=== PATIENT | female | born 1950 | race Caucasian/White ===

== ENCOUNTER 2016-11-30 12:32 | Emergency (ER) | payer BC ==
[~2016-11-30] VITALS: Ht 160 cm; Wt 79.5 kg
[~2016-11-30 12:32] MED LIST: ASPEC81 PO; IBUP600T44 PO; METO50TA16 PO; OXYC-57 PO; TAMO20TA5 PO
[2016-11-30 12:39] VITALS: TEMP 36.8; Ht 160 cm; Wt 79.5 kg
[2016-11-30] MEDS ORDERED: ASPI-461 PO (13:02)
[2016-11-30] MEDS ORDERED: SODIUM CHLORIDE 0.9% 1000ML 1,000 ML IV STA (13:05)
[2016-11-30] MEDS ORDERED: KETOROLAC TROMETHAMINE 30 MG/ML VIAL IV STA (13:05)
--- NOTE | 2016-11-30 13:06 | EMERGENCY ROOM VISIT NOTE ---
History Report prepared by Rakesh: Rajinder Qureshi Under the Supervision of: Dr. Honorio Wallace M.D. First contact with patient: 12:56 Chief Complaint: HEADACHE Stated Complaint: RT SIDE NUMBNESS IN FACE, DOESN'T FEEL RIGHT, SARABIA History of Present Illness The patient is a 66 year old female who presents to the Emergency Room with complaints of persistent right-sided facial numbness that started 4 days ago. Her primary care doctor recommended that the patient come here to be evaluated. She says that her numbness has been getting worse and she has had a headache, but she currently does not have the headache. The patient notes that she had a bit of ringing in her left ear last night, but that has gone away. She denies nausea, vomiting, weakness, or difficulty ambulating. The patient took a Valtrex last night to see if it would help. She does get cold sores regularly. The patient just got off Azithromycin last week. She is not on any blood thinners. The patient has not had any recent falls. She does note that for the last 2 years, she has had episodes of vertigo, and takes Meclizine for them. Source of History: patient Onset: 4 days ago Position: other (face - right side) Quality: numbness Timing: other (persistent) Associated Symptoms: + headache (denied currently), No nausea, No vomiting, No weakness Note: Associated symptoms: Episode of left ear ringing last night. Denies difficulty ambulating. Review of Systems See HPI for pertinent positives & negatives. A total of 10 systems reviewed and were otherwise negative. Past Medical & Surgical Medical Problems: (1) Dysplasia of cervix (2) Vaginal hysterectomy (3) Vertigo Family History Diabetes mellitus FH: lung disease FHx: cancer FHx: gallbladder disease Hypertension Kidney disease Social History Smoking Status: Never Smoker Smokeless Tobacco Use: No Alcohol Use: none Marital Status: Housing Status: lives with family Occupation Status: employed Current/Historical Medications Scheduled Aspirin (Aspirin), 81 MG PO DAILY Metoprolol Tartrate (Lopressor) (Lopressor), 50 MG PO DAILY Prednisone (Prednisone), 1 TAB PO DAILY Valacyclovir Hcl (Valtrex), 1,000 MG PO TID Allergies Coded Allergies: Quinolones (Verified Allergy, Unknown, LEVAQUIN, 11/30/16) Amoxicillin (Unverified Adverse Reaction, Intermediate, SEVERE N/V, ) Clavulanic Acid (Unverified Adverse Reaction, Intermediate, SEVERE N/V, ) Physical Exam Vital Signs Date Time Temp Pulse Resp B/P Pulse Ox O2 Delivery O2 Flow Rate FiO2 11/30/16 15:12 66 155/76 11/30/16 14:30 87 17 131/87 97 Room Air 11/30/16 12:39 36.8 70 18 148/100 94 Room Air Physical Exam GENERAL: Patient is well appearing and in no acute distress. HEENT: No acute trauma, normocephalic atraumatic, mucous membranes moist, no nasal congestion, no scleral icterus. Decreased sensation over right nose and right maxillary sinus. NECK: No stridor, no adenopathy, no meningismus, trachea is midline. LUNGS: No dyspnea. Clear to auscultation and equal bilaterally. No wheeze, no rhonchi. HEART: Regular rate and rhythm. No murmurs, rubs, gallops appreciated. ABDOMEN: Soft, nontender, bowel sounds positive, no masses appreciated, no peritonitis. BACK: No midline tenderness, no CVA tenderness EXTREMITIES: Normal motion all extremities, no cyanosis, no edema. NEUROLOGIC: Alert and oriented, no acute motor or sensory deficits, no focal weakness, cranial nerves grossly intact. SKIN: No rash, no jaundice, no diaphoresis. Medical Decision & Procedures ER Provider Diagnostic Interpretation: MRI results are stated below per my interpretation and the radiologist's interpretation. Brain MRI WITHOUT CONTRAST HISTORY: Mental status change stroke rule out. Right facial paresthesias TECHNIQUE: Multiplanar multisequence MRI of the brain was performed without the use of contrast. COMPARISON STUDY: None. FINDINGS: There are no areas of restricted diffusion to suggest acute infarction. The midline structures are intact. The paranasal sinuses are clear. The mastoid air cells are clear. The ventricles and sulci are within normal limits for age. There is no mass, hematoma, midline shift. The major vascular flow-voids at the skull base are well maintained. Moderate chronic small vessel change of aging. Sella and parasellar regions are unremarkable. IMPRESSION: No acute intracranial abnormality. Moderate chronic small vessel change of aging. No evidence for abnormal postcontrast enhancement. Electronically signed by: Oscar Rayo M.D. 11/30/2016 2:34 PM Dictated Date/Time: 11/30/2016 2:29 PM Medications Administered Medications (Trade) Dose Ordered Sig/Sharad Route Start Time Stop Time Status Last Admin Dose Admin Sodium Chloride (Nss 1000ml) 1,000 ml @ 999 mls/hr Q1H1M STAT IV 11/30/16 13:05 11/30/16 14:05 DC 11/30/16 13:09 999 MLS/HR Prednisone (PredniSONE TAB) 60 mg NOW STAT PO 11/30/16 14:54 11/30/16 14:56 DC 11/30/16 15:05 60 MG Valacyclovir HCl (Valtrex Tab) 1,000 mg NOW ONCE PO 11/30/16 15:00 11/30/16 15:01 DC 11/30/16 15:05 1,000 MG ED Course 1258: The patient was evaluated in room B5. A complete history and physical exam was performed. 1304: I reevaluated the patient and she currently has no headache, and she denies Toradol. 1305: Ordered Toradol Inj 30 mg IV, NSS 1000 ml @ 999 mls/hr IV. 1410: I reevaluated the patient and she is at MRI. 1454: Ordered Prednisone Tab 60 mg PO. 1457: Reevaluated the patient and she is resting comfortably. Discussed results and discharge instructions: She verbalized understanding and agreement. The patient is ready for discharge. 1500: Ordered Valtrex Tab 1000 mg PO. Medical Decision 66 yr old pleasant female arrives for evaluation of paresthesia and decreased sensation over right nares and maxillary sinus. Exam benign without any neuro deficits. With history there is concern that this is stroke related thus went ahead with MRI. As no trauma nor severe headache nor other acute issues felt that doing CT initially would be counterproductive. MRI fortunately normal. Patient stable and feeling well. Will add on steroids for likely neuritis. As she has history of Herpetic lesions on lips will add on Valtrex on off chance this is early shingles or other viral etiology. Impression Primary Impression: Facial paresthesia Scribe Attestation The scribe's documentation has been prepared under my direction and personally reviewed by me in its entirety. I confirm that the note above accurately reflects all work, treatment, procedures, and medical decision making performed by me. Departure Information Dispostion Home / Self-Care Prescriptions Valacyclovir Hcl (VALTREX) 1 Gm Tab 1000 MG PO TID, #21 TAB Prov: Honorio Wallace M.D. 11/30/16 Prednisone (Prednisone) 50 Mg Tab 1 TAB PO DAILY for 5 Days, #5 TAB Prov: Honorio Wallace M.D. 11/30/16 Referrals Terence Zee M.D. (PCP) Patient Instructions My [facility] Additional Instructions Return immediately if weakness, severe headache, fevers, or other concerns.
[2016-11-30 14:30] VITALS: O2SAT 97
--- NOTE | 2016-11-30 14:36 | DIAGNOSTIC IMAGING REPORT ---
Brain MRI WITHOUT CONTRAST HISTORY: Mental status change stroke rule out. Right facial paresthesias TECHNIQUE: Multiplanar multisequence MRI of the brain was performed without the use of contrast. COMPARISON STUDY: None. FINDINGS: There are no areas of restricted diffusion to suggest acute infarction. The midline structures are intact. The paranasal sinuses are clear. The mastoid air cells are clear. The ventricles and sulci are within normal limits for age. There is no mass, hematoma, midline shift. The major vascular flow-voids at the skull base are well maintained. Moderate chronic small vessel change of aging. Sella and parasellar regions are unremarkable. IMPRESSION: No acute intracranial abnormality. Moderate chronic small vessel change of aging. No evidence for abnormal postcontrast enhancement. Electronically signed by: Oscar Rayo M.D. 11/30/2016 2:34 PM Dictated Date/Time: 11/30/2016 2:29 PM
[2016-11-30] MEDS ORDERED: VALA1TAB2 PO (15:00)
[2016-11-30] MEDS ORDERED: PRED50TA PO (15:00)
[2016-11-30 15:12] VITALS: BP 155/76; PULSE 66
== END 2016-11-30 15:13 | disposition home or self-care (01) ==
LOC: C.EDB 12:34
DX: R20.2 Paresthesia of skin (principal); Z90.710 Acquired absence of both cervix and uterus; Z83.3 Family history of diabetes mellitus; Z80.9 Family history of malignant neoplasm, unspecified; Z82.49 Family history of ischemic heart disease and other diseases of the circulatory system; Z79.82 Long term (current) use of aspirin; Z79.899 Other long term (current) drug therapy

== ENCOUNTER → 2016-12-13 | Outpatient (CLI) | payer BC ==
[~2016-12-13] MED LIST changes: -ASPEC81 PO; +ASPI-461 PO; -IBUP600T44 PO; -OXYC-57 PO; -TAMO20TA5 PO
--- NOTE | 2016-12-13 14:09 | DIAGNOSTIC IMAGING REPORT ---
BILATERAL CAROTID DOPPLER STUDY HISTORY: Mental status change RT FACIAL NUMBNESS COMPARISON: None. TECHNIQUE: Real-time, grayscale, and color Doppler sonography of the carotid arteries was performed. Imaging reviewed in the transverse and longitudinal planes. All measurements were calculated based on NASCET criteria. FINDINGS: Antegrade flow is seen in the bilateral vertebral arteries. The brachial pressures are hemodynamically similar. Mild plaque formation bilaterally The peak systolic velocity within the right ICA is 44. The right systolic ratio is 0.7. The peak systolic velocity within the left ICA is 49. The left systolic ratio is 0.7. IMPRESSION: No hemodynamically significant stenosis seen within the carotid arteries. Mild plaque formation bilaterally Electronically signed by: Oscar Rayo M.D. 12/13/2016 2:08 PM Dictated Date/Time: 12/13/2016 2:07 PM
== END | disposition home or self-care (01) ==
LOC: C.ULTR 13:23
PROVIDERS: ATTEND Internal Medicine
DX: R20.0 Anesthesia of skin (principal)

== ENCOUNTER → 2017-02-25 | Outpatient (CLI) | payer BC ==
[2017-02-25 11:30] LABS: URINE APPEARANCE CLEAR (CLEAR); URINE BILIRUBIN NEG (NEG); URINE COLOR YELLOW; URINE NITRITE NEG (NEG); URINE SPECIFIC GRAVITY 1.021 (1.000-1.030); UROBILINOGEN NEG (NEG)
[2017-02-25 11:31] LABS: MANUAL MICROSCOPIC REQUIRED? NO; REVIEW REQ? NO
== END | disposition home or self-care (01) ==
LOC: C.LABSPEC 10:48
PROVIDERS: ATTEND Obstetrics & Gynecology
DX: R35.0 Frequency of micturition (principal)

== ENCOUNTER → 2017-02-25 | Outpatient (CLI) | payer BC | END | disposition home or self-care (01) | LOC: C.PAPS 12:00 | PROVIDERS: ATTEND Obstetrics & Gynecology | DX: R87.613 High grade squamous intraepithelial lesion on cytologic smear of cervix (HGSIL) (principal) ==

== ENCOUNTER 2017-10-10 16:56 | Emergency (ER) | payer BC, OTHER ==
[~2017-10-10] VITALS: Ht 160 cm; Wt 79.9 kg
[2017-10-10 17:20] VITALS: TEMP 36.7; Ht 160 cm; Wt 79.9 kg
[2017-10-10] MEDS ORDERED: SODIUM CHLORIDE 0.9% 1000ML 1,000 ML IV STA (19:00)
[2017-10-10] MEDS ORDERED: OPTIRAY 320 IV PRN (19:15)
[2017-10-10 19:16] LABS: BASO % 0.2 %; BASO ABS # 0.03 K/uL (0-0.2); EOS % 2.7 %; EOS ABS # 0.33 K/uL (0-0.5); HEMOGLOBIN 14.3 g/dL (12.0-16.0); IG# 0.03 K/uL (0.00-0.02); LYMPH % 24.2 %; LYMPH ABS # 2.98 K/uL (1.2-3.4); MEAN CELL VOLUME 93.1 fL (80-100); MEAN CORPUSCULAR HGB CONC 33.3 g/dl (32-36); MEAN PLATELET VOLUME 10.6 fL (7.4-10.4); MONO % 5.4 %; MONO ABS # 0.66 K/uL (0.11-0.59); NEUT % 67.3 %; NEUT ABS # 8.29 K/uL (1.4-6.5); PLATELET COUNT 273 K/uL (130-400); RED CELL DISTRIBUTION WIDTH CV 14.2 % (11.5-14.5); RED CELL DISTRIBUTION WIDTH SD 48.5 fL (36.4-46.3); WHITE BLOOD COUNT 12.32 K/uL (4.8-10.8)
--- NOTE | 2017-10-10 19:24 | EMERGENCY ROOM VISIT NOTE ---
History Report prepared by Rakesh: Henry Garcia Under the Supervision of: Dr. Mayank Frances M.D. First contact with patient: 18:29 Chief Complaint: ABDOMINAL PAIN Stated Complaint: ABD PAIN,DISTENTION,FEVER X2 WEEKS Nursing Triage Summary: Patient ambulatory to triage with an upright and steady gait, states "I had the stomach flu two weeks ago; vomiting and diarrhea. I have been having trouble with my intestines since. I have been constipated and am passed very little gas. I am distended. I have pain in my left abdomen that radiates into the left side of my back. I had a small fever over the weekend. I don't feel good all over. I was wondering if I had diverticulitis. I have been taking Cipro and Advil since the weekend. I had black stools one day last week." History of Present Illness The patient is a 67 year old female who presents to the Emergency Room with complaints of constant left-sided abdominal pain beginning two weeks ago. The patient states that she had the flu two weeks ago, and notes that her "intestines have not been right since." She reports that she has been having symptoms of bloating, constipation, irregular bowel movements, melena x1 last week, vomiting, and a fever. The patient states that she has been taking Cipro and Advil with mild relief of her symptoms. She notes that she has a personal history of a vaginal hysterectomy and breast cancer. She reports that she has a family history of diverticulitis and gallbladder disease. The patient states that her current pain is a 2/10. Pt denies LOC, headache, chills, diaphoresis, visual changes, neck pain, chest pain, cough, breathing difficulties, nausea, back pain, hematochezia, urinary symptoms, numbness, weakness, lymphadenopathy, rash, swollen glands, change in appetite, or other complaints. Source of History: patient Onset: two weeks ago Position: abdomen (LLQ, LUQ) Symptom Intensity: 2/10 Timing: constant Modifying Factors (Relieving): other (cipro, advil) Associated Symptoms: + fevers, + vomiting, + melena (x1) Note: She also complains of bloating, constipation, and irregular bowel movements. Review of Systems See HPI for pertinent positives and negatives. A total of ten systems were reviewed and were otherwise negative. Past Medical & Surgical Medical Problems: (1) Breast cancer (2) Dysplasia of cervix (3) Vaginal hysterectomy (4) Vertigo Family History Diabetes mellitus FH: lung disease FHx: cancer FHx: diverticulitis FHx: gallbladder disease Hypertension Kidney disease Social History Smoking Status: Former Smoker Alcohol Use: none Marital Status: Housing Status: lives with family Occupation Status: employed Current/Historical Medications Scheduled Ascorbic Acid (Ascorbic Acid), 500 MG PO DAILY Aspirin (Aspirin), 81 MG PO DAILY Cholecalciferol (Vitamin D3), 2,000 UNITS PO DAILY Ciprofloxacin Hcl (Cipro), 500 MG PO BID Cyanocobalamin (Vitamin B12 100 Mcg), 400 MCG PO DAILY Metoprolol Tartrate (Lopressor) (Lopressor), 50 MG PO DAILY Metronidazole (Flagyl), 500 MG PO TID Allergies Coded Allergies: Quinolones (Verified Allergy, Unknown, LEVAQUIN, 11/30/16) Amoxicillin (Verified Adverse Reaction, Intermediate, SEVERE N/V, 10/10/17) Clavulanic Acid (Verified Adverse Reaction, Intermediate, SEVERE N/V, 10/10) Physical Exam Vital Signs Date Time Temp Pulse Resp B/P (MAP) Pulse Ox O2 Delivery O2 Flow Rate FiO2 10/10/17 21:17 64 20 126/80 97 Room Air 10/10/17 20:16 67 20 98/59 97 Room Air 10/10/17 18:53 64 18 135/87 98 Room Air 10/10/17 17:20 36.7 69 20 125/77 96 Room Air Physical Exam GENERAL: Awake, alert, well-appearing, in no distress HENT: Normocephalic, atraumatic. Oropharynx unremarkable. EYES: Normal conjunctiva. Sclera non-icteric. NECK: Supple. No nuchal rigidity. FROM. No masses. RESPIRATORY: Clear to auscultation. No wheezes. CARDIAC: Normal rate. Normal rhythm. No murmurs. No rubs. Extremities warm and well perfused. Pulses equal. No JVD. GI: Soft, non-distended. No rebound or guarding. No masses. Left upper and left lower tenderness to palpation. RECTAL: Deferred. MUSCULOSKELETAL: Atraumatic. Chest examination reveals no tenderness. The back is symmetrical on inspection without obvious abnormality. There is no CVA tenderness to palpation. No joint edema. LOWER EXTREMITIES: Calves are equal size bilaterally and non-tender. No edema. No discoloration. NEURO: Normal sensorium. No sensory or motor deficits noted. SKIN: No rash or jaundice noted. Medical Decision & Procedures ER Provider Diagnostic Interpretation: Radiology results as stated below per my review and radiologist interpretation: ABDOMEN AND PELVIS CT WITH IV CONTRAST CT DOSE: 492.23 mGy.cm HISTORY: Left lower quadrant pain, h/o diverticulitis TECHNIQUE: Multiaxial CT images of the abdomen and pelvis were performed following the use of intravenous contrast. A dose lowering technique was utilized adhering to the principles of ALARA. COMPARISON STUDY: None. FINDINGS: There are few linear densities within the lung bases consistent with subsegmental atelectasis. No pneumoperitoneum. No pneumatosis. No suspicious lytic or blastic osseous lesions. Bilateral breast augmentation. The liver, gallbladder, spleen, adrenal glands, and right kidney are unremarkable. A 3 mm lesion within the upper pole the left kidney is appears to contain fat. Therefore, this is consistent with a small angiomyolipoma. No hydronephrosis. No retroperitoneal lymphadenopathy. There is a left retroaortic renal vein. A 6 mm hypodense lesion within the pancreatic head adjacent to the common bile duct. This is best in image 135. This is too small to charge but favors a small side branch intraductal papillary mucinous neoplasm. The bladder is unremarkable. Hysterectomy. Focal thickening within the proximal descending colon with an inflamed diverticulum and surrounding pericolonic fat stranding. No perforation or abscess. This is consistent with acute diverticulitis. Normal appendix. IMPRESSION: 1. Acute diverticulitis involving the descending colon. No perforation or abscess at this time. Recommend follow-up to ensure resolution. 2. No evidence for bowel obstruction. 3. A 6 mm hypodense lesion within the pancreatic head. This likely represents a small side branch intraductal papillary mucinous neoplasm. Six-month MRCP follow-up can be performed to ensure stability. Electronically signed by: Wade Javier M.D. 10/10/2017 8:22 PM Laboratory Results 10/10/17 19:00 Red Blood Count 4.62, Mean Corpuscular Volume 93.1, Mean Corpuscular Hemoglobin 31.0, Mean Corpuscular Hemoglobin Concent 33.3, Mean Platelet Volume 10.6, Neutrophils (%) (Auto) 67.3, Lymphocytes (%) (Auto) 24.2, Monocytes (%) (Auto) 5.4, Eosinophils (%) (Auto) 2.7, Basophils (%) (Auto) 0.2, Neutrophils # (Auto) 8.29, Lymphocytes # (Auto) 2.98, Monocytes # (Auto) 0.66, Eosinophils # (Auto) 0.33, Basophils # (Auto) 0.03 10/10/17 19:00 Test 10/10/17 18:50 10/10/17 19:00 Urine Color YELLOW Urine Appearance CLEAR (CLEAR) Urine pH 5.5 (4.5-7.5) Urine Specific [place] 1.007 (1.000-1.030) Urine Protein NEG (NEG) Urine Glucose (UA) NEG (NEG) Urine Ketones NEG (NEG) Urine Occult Blood TRACE (NEG) Urine Nitrite NEG (NEG) Urine Bilirubin NEG (NEG) Urine Urobilinogen NEG (NEG) Urine Leukocyte Esterase NEG (NEG) Urine WBC (Auto) 1-5 /hpf (0-5) Urine RBC (Auto) 0-4 /hpf (0-4) Urine Hyaline Casts (Auto) 0 /lpf (0-5) Urine Epithelial Cells (Auto) 0-5 /lpf (0-5) Urine Bacteria (Auto) NEG (NEG) White Blood Count 12.32 K/uL (4.8-10.8) Red Blood Count 4.62 M/uL (4.2-5.4) Hemoglobin 14.3 g/dL (12.0-16.0) Hematocrit 43.0 % (37-47) Mean Corpuscular Volume 93.1 fL (80-100) Mean Corpuscular Hemoglobin 31.0 pg (25-34) Mean Corpuscular Hemoglobin Concent 33.3 g/dl (32-36) Platelet Count 273 K/uL (130-400) Mean Platelet Volume 10.6 fL (7.4-10.4) Neutrophils (%) (Auto) 67.3 % Lymphocytes (%) (Auto) 24.2 % Monocytes (%) (Auto) 5.4 % Eosinophils (%) (Auto) 2.7 % Basophils (%) (Auto) 0.2 % Neutrophils # (Auto) 8.29 K/uL (1.4-6.5) Lymphocytes # (Auto) 2.98 K/uL (1.2-3.4) Monocytes # (Auto) 0.66 K/uL (0.11-0.59) Eosinophils # (Auto) 0.33 K/uL (0-0.5) Basophils # (Auto) 0.03 K/uL (0-0.2) RDW Standard Deviation 48.5 fL (36.4-46.3) RDW Coefficient of Variation 14.2 % (11.5-14.5) Immature Granulocyte % (Auto) 0.2 % Immature Granulocyte # (Auto) 0.03 K/uL (0.00-0.02) Anion Gap 7.0 mmol/L (3-11) Est Creatinine Clear Calc Drug Dose 53.8 ml/min Estimated GFR () 65.6 Estimated GFR (Non- 56.6 BUN/Creatinine Ratio 11.3 (10-20) Calcium Level 9.4 mg/dl (8.5-10.1) Total Bilirubin 0.4 mg/dl (0.2-1) Direct Bilirubin 0.1 mg/dl (0-0.2) Aspartate Amino Transf (AST/SGOT) 15 U/L (15-37) Alanine Aminotransferase (ALT/SGPT) 35 U/L (12-78) Alkaline Phosphatase 78 U/L (45-117) Total Protein 8.3 gm/dl (6.4-8.2) Albumin 3.8 gm/dl (3.4-5.0) Lipase 191 U/L (73-393) Laboratory results reviewed by me Medications Administered Medications (Trade) Dose Ordered Sig/Sharad Route Start Time Stop Time Status Last Admin Dose Admin Sodium Chloride 1,000 ml @ 999 mls/hr Q1H1M STAT IV 10/10/17 19:00 10/10/17 20:00 DC 10/10/17 19:11 999 MLS/HR Ciprofloxacin (Cipro Tab) 500 mg NOW STAT PO 10/10/17 20:40 10/10/17 20:41 DC 10/10/17 21:16 500 MG Metronidazole (Flagyl Tab) 500 mg NOW STAT PO 10/10/17 20:40 10/10/17 20:41 DC 10/10/17 21:17 500 MG Ciprofloxacin (Cipro Tab) 500 mg NOW STAT PO 10/10/17 20:46 10/10/17 20:48 DC 10/10/17 21:17 500 MG Metronidazole (Flagyl Tab) 500 mg NOW STAT PO 10/10/17 20:46 10/10/17 20:48 DC 10/10/17 21:17 500 MG ED Course 184: The patient was evaluated in room B12. A complete history and physical exam was performed. 1900: Sodium Chloride 1000 ml @ 999 mls/hr IV 2040: Metronidazole 500mg PO, Ciprofloxacin 500mg PO 2045: Metronidazole 500mg PO, Ciprofloxacin 500mg PO 2112: I reevaluated the patient. Discussed results and discharge instructions: she verbalized understanding and agreement. The patient is ready for discharge. Medical Decision Triage Nursing notes reviewed. The patient's presentation and history were concerning for abdominal pain. Etiologies such as diverticulitis, obstruction, inflammatory bowel disease, renal colic, PUD, biliary pathology, pancreatitis, mesenteric ischemia, aortic pathology, infections, genitourinary, UTI, perforated viscus, appendicitis, as well as others were entertained. The patient declined analgesia. She is tender in the left abdomen. Her CBC showed a mild leukocytosis. Chemistry panel was unremarkable. Her CT scan was consistent with diverticulitis. Urinalysis negative. The patient was hydrated. She was given oral Cipro and Flagyl. She did well with this. She declined any additional analgesia. She will follow-up with her primary physician. The patient's CT imaging also revealed a small lesion in the pancreas. She was informed. She will follow-up with her PCP for this. I gave my usual and customary discussion regarding this issue. By the evaluation outlined above other emergent etiologies such as those listed in the differential, as well as others, were deemed relatively unlikely. The patient was educated about the findings as listed above. All questions were answered and the patient was pleased with the treatment. Return instructions were outlined and the patient was discharged in stable condition. The patient was referred to her PCP for follow-up for a recheck of the current condition. Medication Reconcilliation Current Medication List: was personally reviewed by me Blood Pressure Screening Patient's blood pressure: Normal blood pressure Blood pressure disposition: Did not require urgent referral Impression Primary Impression: Diverticulitis Scribe Attestation The scribe's documentation has been prepared under my direction and personally reviewed by me in its entirety. I confirm that the note above accurately reflects all work, treatment, procedures, and medical decision making performed by me. Departure Information Dispostion Home / Self-Care Prescriptions Metronidazole (Flagyl) 500 Mg Tab 500 MG PO TID, #28 TAB Prov: Mayank Frances MD 10/10/17 Ciprofloxacin Hcl (CIPRO) 500 Mg Tab 500 MG PO BID, #18 TAB Prov: Mayank Frances MD 10/10/17 Referrals Terence Zee M.D. (PCP) Forms Call Back Authorization, HOME CARE DOCUMENTATION FORM, IMPORTANT VISIT INFORMATION Patient Instructions My [facility] Additional Instructions DIVERTICULITIS INSTRUCTIONS: Ciprofloxacin(Cipro) 500mg: Take one pill twice daily for 10 days for your bowel infection. All antibiotics can cause diarrhea. If this occurs and you feel worse or it does not resolve in 1-2 days follow up with your doctor or return to the Emergency Department as this could be signs of serious underlying problems. If you experience any pain in your tendons/joints or any tendon injury return to the ER for re-evaluation. Any medication can cause an allergic reaction, stop the pills immediately and return to the ER for rash, hives, breathing difficulties, or swelling. Metronidazole(Flagyl) 500mg: Take one pill 3 times daily for 10 days for your bowel infection. DO NOT drink alcohol or take alcohol containing products with this medication. Any medication can cause an allergic reaction, stop the pills immediately and return to the ER for rash, hives, breathing difficulties, or swelling. Ibuprofen(Motrin, Advil) may be used for fever or pain. Use 600mg every six hours as needed. Take with food. Avoid using more than 2400mg in a 24 hour period. Do not use 2400mg per day for more than three consecutive days without physician direction. Prolonged inappropriate use can lead to stomach upset or ulcers. This is available over the counter and typically comes in 200mg tablets. (AND/OR) Acetaminophen(Tylenol) may be used for fever or pain. Use 1000mg every eight hours as needed. Avoid using more than 3000mg in a 24 hour period. This is available over the counter. Read all the package inserts or medication information paperwork provided. If you have any questions or concerns call your primary provider, pharmacist or the ER for assistance. Rest and drink plenty of fluids as tolerated. Slow sips of water or sports drinks are recommended instead of large amounts all at once. Continue current medications. Once your stomach is settled start with a clear liquid diet (jello, soup broth, etc.) and then advance as tolerated. You should avoid full, heavy meals for about 24 hrs from the time your symptoms resolved. Return to the ER immediately for worsening or persistent abdominal pain, vomiting, fevers, chest pains, difficulty breathing, black or bloody stools, worsening of your condition, or as needed. Follow up with your primary physician as scheduled for a recheck of your current condition. Also discussed the 6 mm lesion seen on the pancreas and follow-up imaging that will be necessary.
[2017-10-10 19:32] LABS: ALBUMIN 3.8 gm/dl (3.4-5.0); CALCIUM 9.4 mg/dl (8.5-10.1); CREATININE 1.03 mg/dl (0.60-1.20); POTASSIUM 3.8 mmol/L (3.5-5.1)
[2017-10-10 19:35] LABS: TOTAL PROTEIN 8.3 gm/dl (6.4-8.2)
[2017-10-10] MEDS ORDERED: ASCO500T16 PO (19:38)
[2017-10-10] MEDS ORDERED: CHOL20007 PO (19:39)
[2017-10-10] MEDS ORDERED: CYAN100T6 PO (19:40)
--- NOTE | 2017-10-10 20:23 | DIAGNOSTIC IMAGING REPORT ---
ABDOMEN AND PELVIS CT WITH IV CONTRAST CT DOSE: 492.23 mGy.cm HISTORY: Left lower quadrant pain, h/o diverticulitis TECHNIQUE: Multiaxial CT images of the abdomen and pelvis were performed following the use of intravenous contrast. A dose lowering technique was utilized adhering to the principles of ALARA. COMPARISON STUDY: None. FINDINGS: There are few linear densities within the lung bases consistent with subsegmental atelectasis. No pneumoperitoneum. No pneumatosis. No suspicious lytic or blastic osseous lesions. Bilateral breast augmentation. The liver, gallbladder, spleen, adrenal glands, and right kidney are unremarkable. A 3 mm lesion within the upper pole the left kidney is appears to contain fat. Therefore, this is consistent with a small angiomyolipoma. No hydronephrosis. No retroperitoneal lymphadenopathy. There is a left retroaortic renal vein. A 6 mm hypodense lesion within the pancreatic head adjacent to the common bile duct. This is best in image 135. This is too small to charge but favors a small side branch intraductal papillary mucinous neoplasm. The bladder is unremarkable. Hysterectomy. Focal thickening within the proximal descending colon with an inflamed diverticulum and surrounding pericolonic fat stranding. No perforation or abscess. This is consistent with acute diverticulitis. Normal appendix. IMPRESSION: 1. Acute diverticulitis involving the descending colon. No perforation or abscess at this time. Recommend follow-up to ensure resolution. 2. No evidence for bowel obstruction. 3. A 6 mm hypodense lesion within the pancreatic head. This likely represents a small side branch intraductal papillary mucinous neoplasm. Six-month MRCP follow-up can be performed to ensure stability. Electronically signed by: Wade Javier M.D. 10/10/2017 8:22 PM Dictated Date/Time: 10/10/2017 8:11 PM
[2017-10-10] MEDS ORDERED: METRONIDAZOLE 250 MG TAB PO STA ×2 (20:40→20:46)
[2017-10-10] MEDS ORDERED: CIPROFLOXACIN 500 MG TAB PO STA ×2 (20:40→20:46)
[2017-10-10 21:17] VITALS: BP 126/80; PULSE 64; O2SAT 97
[2017-10-10] MEDS ORDERED: METR-163 PO (21:28)
[2017-10-10] MEDS ORDERED: CIPR-255 PO (21:28)
== END 2017-10-10 21:40 | disposition home or self-care (01) ==
LOC: C.EDB 16:57
DX: K57.92 Diverticulitis of intestine, part unspecified, without perforation or abscess without bleeding (principal); Z85.3 Personal history of malignant neoplasm of breast; Z87.891 Personal history of nicotine dependence; Z90.710 Acquired absence of both cervix and uterus; Z88.0 Allergy status to penicillin; Z88.1 Allergy status to other antibiotic agents; Z79.82 Long term (current) use of aspirin; Z83.3 Family history of diabetes mellitus; Z82.49 Family history of ischemic heart disease and other diseases of the circulatory system; Z83.79 Family history of other diseases of the digestive system

== ENCOUNTER → 2017-10-31 | Outpatient (CLI) | payer BC ==
[~2017-10-31] MED LIST changes: +ASCO500T16 PO; +CHOL20007 PO; +CIPR-255 PO; +CYAN100T6 PO; +METR-163 PO
--- NOTE | 2017-10-31 07:44 | DIAGNOSTIC IMAGING REPORT ---
ABDOMEN LIMITED (US) CLINICAL HISTORY: 67 years-old Female presenting with UPPER ABDOMINAL PAIN,DYSPEPSIA, right upper quadrant pain. TECHNIQUE: Real-time grayscale and limited color Doppler ultrasound imaging of the abdomen limited to the right upper quadrant was performed. COMPARISON: CT from 10/10/2017. FINDINGS: Pancreas: 6 mm hypoechoic lesion in the pancreatic head. No pancreatic ductal dilatation. Liver: Hyperechogenic parenchyma with heterogeneous echotexture, likely indicating steatosis or fibrosis. The liver measures 18.2 cm in maximal sagittal dimension. No sonographic evidence of hepatic mass. Main portal vein patent with normal directional flow. Biliary: Mild intrahepatic biliary ductal dilatation. Common bile duct measures up to 9 mm in diameter. Gallbladder: Twinkling artifact arising from the gallbladder fundus may indicate adenomyomatosis. No evidence of gallstones, gallbladder distention, or pericholecystic fluid or inflammatory change. Sonographic Serrano's sign negative. Right kidney: Normal in appearance. No hydronephrosis. Ascites: None. IMPRESSION: 1. No cholelithiasis. 2. Mild intrahepatic and extrahepatic biliary ductal dilatation, which is nonspecific. 3. Heterogeneous liver parenchyma with mild hepatomegaly can indicate underlying steatosis or fibrosis. 4. Subcentimeter cystic pancreatic lesion, likely small side branch intraductal papillary mucinous neoplasm or mucinous cyst. No sonographic worrisome features. Cross-sectional imaging could be considered in 2-3 years per Bianca criteria. Electronically signed by: Cody Aguilar M.D. 10/31/2017 7:43 AM Dictated Date/Time: 10/31/2017 7:36 AM
== END | disposition home or self-care (01) ==
LOC: C.ULTR 06:20
PROVIDERS: ATTEND Internal Medicine
DX: R10.13 Epigastric pain (principal)

== ENCOUNTER → 2017-11-15 | Outpatient (CLI) | payer BC ==
[~2017-11-15] MED LIST changes: +SINCALIDE INJ 1.5 MCG in SODIUM CHLORIDE 0.9% 100ML 100 ML IV ONE
--- NOTE | 2017-11-15 13:48 | DIAGNOSTIC IMAGING REPORT ---
HEPATOBILIARY EF IMAGING CLINICAL HISTORY: 67 years-old Female presenting with ABDOMINAL Pain, abnormal FINDINGS ON LIVER IMAGING. TECHNIQUE: Dynamic imaging of the gallbladder was initiated 65 minutes after administration of 5.4 mCi of technetium 99m Choletec. Imaging was obtained every 5 minutes over a span of 40 minutes. 1.5 mcg of sincalide was injected 5 minutes prior to the start of imaging. The gallbladder ejection fraction was calculated. COMPARISON: Ultrasound from 10/31/2017. FINDINGS: Hepatobiliary scan demonstrates normal radiotracer uptake by the liver and normal excretion into the common duct and gallbladder. Expected radiotracer activity within small bowel indicates an unobstructed common duct. The gallbladder subsequently demonstrates normal contraction with decreased radiotracer activity. Gallbladder ejection fraction measures 72%. Reference range: Unequivocally normal: Greater than 50% Unequivocally abnormal: Less than 35% IMPRESSION: 1. Normal gallbladder ejection fraction. No evidence of chronic cholecystitis. Electronically signed by: Cody Aguilar M.D. 11/15/2017 1:46 PM Dictated Date/Time: 11/15/2017 1:45 PM
== END | disposition home or self-care (01) ==
LOC: C.NUCL 10:08
PROVIDERS: ATTEND Internal Medicine Gastroenterology
DX: R10.9 Unspecified abdominal pain (principal); R93.2 Abnormal findings on diagnostic imaging of liver and biliary tract

== ENCOUNTER 2022-04-26 08:21 | Inpatient (IN) ==
--- NOTE | 2022-04-21 16:30 | Anesthesiology Consultation ---
Date of Service April 21, 2022 Assessment & Plan (1) Encounter for pre-operative examination: Plan - abnormal EKG, greater T wave inversion vs 2020 EKG. Pt contacted and states PCP referred her to cardiology for pre-op determination given abnormal EKG and she was cleared. We will request records. - Dr. Natarajan pre-op evaluation. - PCP (Dr. Karishma Tobin, [facility]) clearance. 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 Pt vaccinated. To surgeon's discretion if preop COVID testing needed. Chart Review Chart Review: Pending: Refer to Additional Notes / Consult section and Patient NOT seen in Pre Admission Testing History Surgery Operation Date: 04/26/22 11:40 Proposed Procedures p L5-S1 Decompression and Fusion, Spinal Cord Monitoring - Kei Morris, Height/Weight Height: 5 ft 3 in Weight: 72.121 kg Allergies Allergy/AdvReac Type Severity Reaction Status Date / Time Quinolones Allergy Intermediate LEVAQUIN - Verified 04/02/22 10:09 joint pain amoxicillin AdvReac Intermediate SEVERE N/V Verified 04/02/22 10:09 clavulanic acid AdvReac Intermediate SEVERE N/V Verified 04/02/22 10:09 Medications Home Medications Medication Instructions Recorded Confirmed Last Taken metoprolol succinate 50 mg 50 mg PO QAM 02/20/20 04/02/22 02/27/20 05:00 tablet,extended release 24 hr aspirin 81 mg tablet,delayed 81 mg PO Q2D 02/22/20 04/02/22 02/24/20 07:00 release (Alicia Low Dose Aspirin) Past Medical History Medical History Bartholin gland cyst Breast cancer right breast Breast enlargement Cholelithiasis Diverticulitis hx Esophageal reflux rarely History of COVID-19 DX'D 2018 [place]-FEVER, BRAIN FOG, LOSS TASTE AND SMELL, FATIGUE-RECOVERED AT HOME-RESOLVED Hypertension Numbness RIGHT LEG/FOOT Pancreatic cyst monitoring Vertigo HX-1-2 X A YEAR Past Family History Family History Sister Breast cancer Mother Hypertension Father Hypertension Aunt Cancer Grandmother Diabetes Heart disease Uncle Diabetes Other No family history of adverse response to anesthesia Past Surgical History Surgical History (Updated 04/21/22 @ 16:23 by Charity Kulkarni PA-C) H/O colonoscopy H/O mastectomy right partial mastectomy with axillary lymph node biopsy--does not restrict limb. History of bilateral tubal ligation History of cataract surgery R/L History of vaginal hysterectomy Hx laparoscopic cholecystectomy (02/27/20) Laparoscopic Cholecystectomy Dr. Freeman 02/27/20: Grade 2 view, MAC 3, ETT 7.5. Hx of oral surgery Nausea and vomiting after administration of anesthetic agent YEARS AGO S/P tonsillectomy and adenoidectomy Social History Smoking Status: Former smoker Do You Dip or Chew Tobacco: No Smoking End Date: IN HER 'S Hx Alcohol Use: No Hx Substance Use: No substance use type: does not use Testing Laboratory Results 04/09/2022 WBC: 6.8 H/H: 14/46 PLATELETS: 236 SODIUM: 138 POTASSIUM: 5 CHLORIDE: 105 CO2: 24 BUN: 18 CREATININE: 0.8 GLUCOSE: 94 UA: yellow, clear, low urine specific gravity, negative for bacteria PT:12.6 INR: 0.9 Electrocardiogram Date: 04/09/22 Sinus bradycardia, rate 48 bpm Septal infarct, age undetermined T wave abnormality, consider lateral ischemia Chest X-Ray Date: 04/09/22 No acute cardiopulmonary abnormality Tortuous aorta is seen
[~2022-04-26 08:21] MED LIST changes: +ACETAMINOPHEN 500 MG TAB PO SCH; -ASCO500T16 PO; -ASPI-461 PO; -CHOL20007 PO; -CIPR-255 PO; -CYAN100T6 PO; +CeleBREX 200 MG CAP PO SCH; +GABAPENTIN 300 MG CAP PO SCH; +LR 15ML/HR IV SCH; -METO50TA16 PO; -METR-163 PO; -SINCALIDE INJ 1.5 MCG in SODIUM CHLORIDE 0.9% 100ML 100 ML IV ONE; +ceFAZolin 1000MG 1,000 MG/7.5 ML SYR IV SCH
[2022-04-26] MEDS ORDERED: MIDAZOLAM HCL 1 MG/ML 2ML VIAL ONE (09:40)
[2022-04-26] MEDS ORDERED: fentaNYL citrate 100 MCG/2 ML VIAL ONE ×2 (09:40→11:30)
[2022-04-26] MEDS ORDERED: ATROPINE SULFATE 0.1 MG/ML 10ML SYR IV PRN (09:41)
[2022-04-26] MEDS ORDERED: ePHEDrine sulfate 50 MG/ML AMP IV PRN (09:41)
[2022-04-26] MEDS ORDERED: ONDANSETRON INJ 2 MG/ML 2 ML VIAL IV PRN ×2 (09:41→13:48)
[2022-04-26] MEDS ORDERED: HYDROmorphone INJ 1 MG/ML SYRINGE IV PRN ×2 (09:41→13:48)
--- NOTE | 2022-04-26 09:43 | History & Physical Bridge Note ---
Date of Service April 26, 2022 History & Physical Bridge Note I have examined the patient, reviewed the History & Physical and in the interval since the performance of the History & Physical I have noted the following changes of clinical significance: no changes noted
--- NOTE | 2022-04-26 09:44 | History & Physical Report ---
Date of Service April 26, 2022 Assessment & Plan (1) Neurogenic claudication due to lumbar spinal stenosis: Plan: L5-S1 decompression and fusion History of Present Illness Chief Complaint: Back and right leg pain Primary Care Provider: Karishma Tobin This is a 71-year-old female well-known to me the presents with steady chronic persistent right sided leg pain. After failing extensive course of nonoperative care she is here for surgical invention. Allergies Allergy/AdvReac Type Severity Reaction Status Date / Time Quinolones Allergy Intermediate LEVAQUIN - Verified 04/26/22 09:06 joint pain amoxicillin AdvReac Intermediate SEVERE N/V Verified 04/26/22 09:06 clavulanic acid AdvReac Intermediate SEVERE N/V Verified 04/26/22 09:06 Home Medications Medication Instructions Recorded Confirmed Type metoprolol succinate 50 mg 50 mg PO QAM 02/20/20 04/26/22 History tablet,extended release 24 hr aspirin 81 mg tablet,delayed 81 mg PO Q2D 02/22/20 04/26/22 History release (Alicia Low Dose Aspirin) Past Med/Surg History Medical History (Updated 04/26/22 @ 09:44 by Kei Morris DO) Bartholin gland cyst Breast cancer right breast Breast enlargement Cholelithiasis Diverticulitis hx Esophageal reflux rarely History of COVID-19 DX'D 2019 MN-FEVER, BRAIN FOG, LOSS TASTE AND SMELL, FATIGUE-RECOVERED AT HOME-RESOLVED Hypertension Numbness RIGHT LEG/FOOT Pancreatic cyst monitoring Vertigo HX-1-2 X A YEAR Surgical History H/O colonoscopy H/O mastectomy right partial mastectomy with axillary lymph node biopsy--does not restrict limb. History of bilateral tubal ligation History of cataract surgery R/L History of vaginal hysterectomy Hx laparoscopic cholecystectomy (02/27/20) Laparoscopic Cholecystectomy Dr. Freeman 02/27/20: Grade 2 view, MAC 3, ETT 7.5. Hx of oral surgery Nausea and vomiting after administration of anesthetic agent YEARS AGO S/P tonsillectomy and adenoidectomy Family History Sister Breast cancer Mother Hypertension Father Hypertension Aunt Cancer Grandmother Diabetes Heart disease Uncle Diabetes Other No family history of adverse response to anesthesia Social History (Updated 04/02/22 @ 10:30 by Janey Vega RN) Smoking Status: Former smoker Smoking End Date: IN HER 20'S; Second Hand Exposure: Yes (FATHER SMOKED); Do You Dip or Chew Tobacco: No; Hx Alcohol Use: No Hx Substance Use: No Preferred Language: Indonesian Communication Ability: Effective Patient Financial Advocate Required: No Beliefs That Will Affect Care: None marital status: Current Living Situation: Alone 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
[2022-04-26] MEDS ORDERED: BUPIVACAINE/EPINEPHRINE 0.25% 1:200,000 30 ML VIAL ONE (09:57)
[2022-04-26] MEDS ORDERED: ceFAZolin 330 MG/ML 1 GM VIAL ONE (09:57)
[2022-04-26] MEDS ORDERED: PROPOFOL IV EMULSION 10 MG/ML 20 ML VIAL IV ONE (11:00)
[2022-04-26] MEDS ORDERED: GLYCOPYRROLATE 0.2 MG/ML VIAL ONE ×2 (11:00→11:49)
[2022-04-26] MEDS ORDERED: ONDANSETRON INJ 2 MG/ML 2 ML VIAL ONE (11:00)
[2022-04-26] MEDS ORDERED: NEOSTIGMINE METHYLSULFATE 1 MG/ML 10ML VIAL ONE (11:00)
[2022-04-26] MEDS ORDERED: DEXAMETHASONE SOD INJ 4 MG/ML VIAL ONE (11:00)
[2022-04-26] MEDS ORDERED: ePHEDrine sulfate 50 MG/ML SYR ONE (11:00)
[2022-04-26] MEDS ORDERED: ROCURONIUM BROMIDE 10 MG/ML 5 ML VIAL IV ONE (11:00)
[2022-04-26] MEDS ORDERED: LIDOCAINE 2% MPF LOCAL 5 ML VIAL INFIL ONE (11:00)
[2022-04-26] MEDS ORDERED: FLOSEAL HEMOSTATIC MATRIX 10ML TOP ONE (11:39)
--- NOTE | 2022-04-26 11:47 | Operative Report ---
Post Operative Report Pre & Post Diagnosis Operation Date: 04/26/22 10:05 Pre-Op Diagnosis: Disc Disorders with radiculopathy, Lumbar Region Post-Op Diagnosis: Disc Disorders with radiculopathy, Lumbar Region I identified the patient and participated in the time-out.: Yes Procedure Operation Date: 04/26/22 10:05 Actual Procedures #1 lumbar impression bilateral medial facetectomies and foraminotomies L4-L5 L5- S1. #2 posterior spinal fusion L5-S1. #3 placement posterior instrumentation L5-S1. #4 interbody fusion L5-S1. #5 placement of Spira 13 x 26 mm cage L5-S1. #6 placement locally harvested morselized autograft in the posterior gutters. #7 placement of I factor combined with V toss in the interbody space and posterior gutters. Surgeon Kei Morris, Commercial Collections Driver Judith Szymanski Estimated Blood Loss 100 Findings Consistent with Post-Op Diagnosis Specimens None Indications This is a 68-year-old female known to me the presents above-mentioned diagnosis after failing course of nonoperative care is here for the above-mentioned procedure. Description of Procedure Patient was met with identified informed consent obtained. Patient was then taken to the operative suite underwent a patient placed in a prone position the Tracy table top Clint frame. All bony prominences well-padded eyes inspected to ensure no external pressure placed upon the. This point lumbar spine was prepped and draped in normal sterile fashion. Sharp dissection with the assistance pericardial form down to and exposing the lamina transverse processes of L5 and sacral ala bilaterally. From caudal to cephalad fashion complete laminectomy L5 partial laminectomy of L4 was performed including bilateral medial facetectomies and foraminotomies addressing severe neural compression. Pedicle screws then placed in L5 and S1 levels bilaterally with assistance of fluoroscopy and the properly sized scout placed. By way of a transforaminal approach and right complete discectomy of L5-S1 was performed endplates curetted to subcortical bleeding bone and a 13 x 26 mm spiral cage filled with I factor tapped in position. The rods were then locked into final position bilaterally. The transverse processes of L5-S1 were burred to subcortical bleeding bone. I factor combined with V toss and locally harvested morselized autograft was placed in the posterior gutters. 15 round YESSY drain inserted. The incision was closed with 1 Vicryl fascia 2-0 Vicryl subcutaneously and 4 Monocryl for final skin closure. Steri-Strip sterile dressings placed. Patient waken taken PACU stable condition. Please note Judith Szymanski was present on the entire procedure involved in patient positioning complex portions of the surgery and final skin closure. Lastly spinal cord monitoring was utilized at the procedure no changes noted. I attest to the content of the Intraoperative Record and any orders documented therein. Any exceptions are noted below.
[2022-04-26] MEDS ORDERED: RACEPINEPHRINE 2.25% NEBU SOLN 0.5 ML VIAL ONE (12:14)
[2022-04-26] MEDS: fentaNYL citrate 100 MCG/2 ML VIAL IV PRN ×3 (12:22→12:57)
--- NOTE | 2022-04-26 13:00 | Fluoroscopy Report ---
FL lumbar spine 2-3V CLINICAL HISTORY: L5-S1 decompression and fusion COMPARISON STUDY: None. FLUOROSCOPY TIME: 24 seconds. FINDINGS: 2 fluoroscopic spot images of the lumbar spine demonstrate posterior decompression and fusi on at L5-S1 with pedicle screws and rods. The hardware appears intact. A disc spacer is in place. IMPRESSION: Fluoroscopic assistance provided for L5-S1 posterior decompression and fusion. ACT 112: Negative or not required by law. Electronically signed by: Wade Javier M.D. 04/26/2022 12:59 PM
[2022-04-26] MEDS: LACTATED RINGER'S 1,000 ML IV SCH ×2 (13:30→21:34)
[2022-04-26] MEDS ORDERED: RACEPINEPHRINE 2.25% NEBU SOLN 0.5 ML VIAL INH PRN (13:48)
[2022-04-26] MEDS ORDERED: NALOXONE HCL 0.4 MG/1 ML VIAL/CARP IV PRN (13:48)
[2022-04-26] MEDS ORDERED: ALUMINUM/MAGNESIUM SUSP 30 ML UDC PO PRN (13:48)
[2022-04-26] MEDS ORDERED: FAMOTIDINE 20 MG TAB PO PRN (13:48)
[2022-04-26] MEDS ORDERED: SOD PHOSPHATE/SOD BIPHOSPHATE ENEMA 132 ML BTL PR PRN (13:48)
[2022-04-26] MEDS ORDERED: MAGNESIUM HYDROXIDE SUSP 30 ML UDC PO PRN (13:48)
[2022-04-26] MEDS ORDERED: LORazepam 0.5 MG TAB PO PRN (13:48)
[2022-04-26] MEDS ORDERED: ACETAMINOPHEN 1,000 MG/100 ML VIAL IV PRN (13:48)
[2022-04-26] MEDS ORDERED: LORazepam 0.5 MG in SYRINGE 0.25 ML IV PRN (13:48)
[2022-04-26] MEDS ORDERED: bisacodyL 10 MG SUPP PR PRN (13:48)
[2022-04-26] MEDS ORDERED: PROMETHAZINE HCL 12.5 MG in SODIUM CHLORIDE 0.9% 50 ML IV PRN (13:48)
[2022-04-26] MEDS ORDERED: ONDANSETRON 4 MG OD TAB PO PRN (13:48)
[2022-04-26] MEDS ORDERED: hydrOXYzine HCl 25 MG TAB PO PRN (13:48)
[2022-04-26] MEDS ORDERED: diphenhydrAMINE Capsule 25 MG CAP PO PRN (13:48)
[2022-04-26] MEDS ORDERED: HYDROmorphone INJ 0.5 MG/0.5 ML SYR IV PRN (13:48)
[2022-04-26] MEDS ORDERED: METOCLOPRAMIDE HCL INJ 5 MG/ML 2 ML VIAL IV PRN (13:48)
--- NOTE | 2022-04-26 14:06 | Hospitalist Consultation ---
Date of Consultation April 26, 2022 Assessment & Plan (1) Neurogenic claudication due to lumbar spinal stenosis: - Pain management, bowel regimen and DVT ppx per the primary team - PT/OT consults - Follow am CBC to monitor for acute blood loss, last Hgb was 15.2 - Pt notes her pulse was lower when she got out of the PACU, reports rates in the 40s and 50s, currently her pulse is 69 at bedside, no cardiac symptoms, no palpitations, weakness, shortness of breath, dizziness or lightheadedness. -Tolerating p.o. diet with clear liquids without difficulty (2) Vertigo: - Hx of such, none currently (3) Hypertension: - Took metoprolol succinate this morning as directed, monitor pulse, however currently is stable - BP is slightly lower at 99/60, will follow (4) Esophageal reflux: - Hx of such, stable DVT ppx: - teds, scds CODE: Full code Dispo: From home, likely to remain in the hospital x 1-2 days Thank you for involving us in the care of Mrs. Cruz. If you have any questions or concerns please do not hesitate to call. At this time medicine will follow along. Supervising Physician Co-Signing Physician Notes Attending Addendum: care coordinated with DRU Alvarado please refer to her notes for full details, I agree with her notes patient seen and examined, records reviewed by myself as well on exam, patient seen sitting up in bed, watching TV, comfortable, good spirits States he feels fine overall Minimal back pain no chest pain, dyspnea, palpitations, dizziness Reports return of sensation and movement of right leg no other symptoms VS noted and reviewed orientedx 3, not in distress, speaks in sentences with no effort nor accessory muscle use normal rate, regular rhythm, no murmurs clear breath sounds bilaterally non distended, soft, nontender no bipedal edema, erythema, warmth no neuro deficits ASSESSMENT AND PLAN Status post back surgery Hold metoprolol for now in light of marginal BP, bradycardia earlier Monitor closely other diagnoses and plan of care as per DRU Alvarado's notes Berto Arzola MD History of Present Illness Reason for Consultation: Medical management Requesting Physician: Dr. Morris Attending Physician: Kei Morrsi, DO History of Present Illness This is a 71 yo F with PMhx of HTN, GERD, Bartholin gland cyst, hs of breast cancer fo the right breast and hx of COVID 19 infection in 2019 who presented for elective lumbar decompression surgery from L5-S1 by Dr. Morris today. She reports the left lower leg and foot numbness she was having prior to surgery is improved at this point. She is able to move her legs, toes without any difficulty. She has been drinking since coming up to the floor from PACU without difficulty. Has not yet urinated since postsurgery, last bowel movement was today prior to such. Overall feels well. Her 2 daughters are present in the room with her and all the questions and concerns were addressed. Allergies Allergy/AdvReac Type Severity Reaction Status Date / Time Quinolones Allergy Intermediate LEVAQUIN - Verified 04/26/22 09:06 joint pain amoxicillin AdvReac Intermediate SEVERE N/V Verified 04/26/22 09:06 clavulanic acid AdvReac Intermediate SEVERE N/V Verified 04/26/22 09:06 Home Medications Medication Instructions Recorded Confirmed Type metoprolol succinate 50 mg 50 mg PO QAM 02/20/20 04/26/22 History tablet,extended release 24 hr aspirin 81 mg tablet,delayed 81 mg PO Q2D 02/22/20 04/26/22 History release (Alicia Low Dose Aspirin) Patient History Medical History (Updated 04/26/22 @ 14:04 by Daisy Tavarez PA-C) Bartholin gland cyst Breast cancer right breast Breast enlargement Cholelithiasis Diverticulitis hx Esophageal reflux rarely History of COVID-19 DX'D 2019 [place]-FEVER, BRAIN FOG, LOSS TASTE AND SMELL, FATIGUE-RECOVERED AT HOME-RESOLVED Hypertension Numbness RIGHT LEG/FOOT Pancreatic cyst monitoring Vertigo HX-1-2 X A YEAR Surgical History H/O colonoscopy H/O mastectomy right partial mastectomy with axillary lymph node biopsy--does not restrict limb. History of bilateral tubal ligation History of cataract surgery R/L History of vaginal hysterectomy Hx laparoscopic cholecystectomy (02/27/20) Laparoscopic Cholecystectomy Dr. Freeman 02/27/20: Grade 2 view, MAC 3, ETT 7.5. Hx of oral surgery Nausea and vomiting after administration of anesthetic agent YEARS AGO S/P tonsillectomy and adenoidectomy Family History Sister Breast cancer Mother Hypertension Father Hypertension Aunt Cancer Grandmother Diabetes Heart disease Uncle Diabetes Other No family history of adverse response to anesthesia Social History (Updated 04/02/22 @ 10:30 by Janey Vega, SHARMIN) Smoking Status: Former smoker Smoking End Date: IN HER 20'S; Second Hand Exposure: Yes (FATHER SMOKED); Do You Dip or Chew Tobacco: No; Hx Alcohol Use: No Hx Substance Use: No Preferred Language: Irish Communication Ability: Effective Tool Crib Supervisor Required: No Beliefs That Will Affect Care: None marital status: Current Living Situation: Alone 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 Information That Helps Us Care for You: No Feels Safe at Home: Yes Safety Concerns: Feels Safe At This Time Assistive Devices: Contacts and Glasses Assistive Devices Comment: IMPLANTS FRONT LOWER/PARTIAL UPPER NEW CROWN FRONT Review of Systems Review of Systems: Constitutional: No fever, sweats or chills Eyes: No diplopia, no worsening or blurred vision ENT: normal hearing, no trouble swallowing Respiratory: No cough, sputum, dyspnea at rest or on exertion Cardiovascular: No chest pain, tightness or palpitations Abdomen: No pain, nausea, vomiting, diarrhea or constipation Back: no pain Musculoskeletal: No joint pain, calf pain, swelling Neurologic: No weakness, numbness/tingling, or balance problems Psychiatric: No anxiety or depression Skin: No rash or itch Physical Exam Physical Exam: General: awake, alert, no apparent distress, appears younger than stated age Head: Normocephalic, atraumatic ENT: PERRL, EOMI, no pharyngeal exudate, mucous membranes moist Chest: Anterior sanders clear to auscultation, on room air, no adventitious breath sounds Cardiac: Regular rate and rhythm, no murmur, no JVD, normal peripheral pulses, good capillary refill Abdominal: NABS x 4 quadrants, soft, nondistended, nontender to palpation, no rebound or guarding Back: not examined due to lying flat in bed, YESSY drain present and draining bloody fluid Extremities: Normal inspection, no peripheral edema or erythema, calfs nontender to palpation Psych: Normal mood and affect Neuro: AAO x 3, strength intact bilaterally and rated 5/5, no motor deficits, speech is clear, no peripheral sensory deficits Results & Data Results & Data ([facility]) Vital Signs (Past 12 Hours) Vital Signs Temp Pulse Pulse Resp BP Pulse Ox O2 Del Method 04/26/22 13:15 36.4 C L 69 14 121/70 96 Nasal Cannula 04/26/22 13:00 66 12 101/69 96 Nasal Cannula 04/26/22 12:45 36.2 C L 66 16 129/80 96 Nasal Cannula 04/26/22 12:35 66 12 129/77 95 Nasal Cannula 04/26/22 12:25 80 12 148/82 H 98 Nebulizer 04/26/22 12:15 80 18 128/81 99 Oxymask 04/26/22 12:20 67 14 99 Oxymask 04/26/22 12:08 36 C L 80 18 157/92 H 98 Oxymask 04/26/22 09:20 36.9 C 54 L 18 126/74 96 Room Air O2 Flow Rate 04/26/22 13:15 2 04/26/22 13:00 2 04/26/22 12:45 2 04/26/22 12:35 2 04/26/22 12:25 04/26/22 12:15 11 04/26/22 12:20 11 04/26/22 12:08 11 04/26/22 09:20 Laboratory Results 04/26/22 08:40 SARS-CoV-2, RNA, NAAT NEGATIVE Diagnostic Findings Lumbar Spine X-Ray 04/26/22 10:05 FL lumbar spine 2-3V CLINICAL HISTORY: L5-S1 decompression and fusion COMPARISON STUDY: None. FLUOROSCOPY TIME: 24 seconds. FINDINGS: 2 fluoroscopic spot images of the lumbar spine demonstrate posterior decompression and fusion at L5-S1 with pedicle screws and rods. The hardware appears intact. A disc spacer is in place. IMPRESSION: Fluoroscopic assistance provided for L5-S1 posterior decompression and fusion. ACT 112: Negative or not required by law. Electronically signed by: Wade Javier M.D. 04/26/2022 12:59 PM
--- NOTE | 2022-04-26 14:27 | Anesthesiology Progress Note ---
Date of Service April 26, 2022 Anesthesia Post Procedure Vital Signs Vital Signs: Temp Pulse Pulse Resp BP Pulse Ox O2 Del Method 04/26/22 13:30 36.3 C L 59 L 14 106/68 94 Nasal Cannula 04/26/22 14:00 36.4 C L 62 16 109/54 L 95 Nasal Cannula 04/26/22 13:15 36.4 C L 69 14 121/70 96 Nasal Cannula 04/26/22 13:00 66 12 101/69 96 Nasal Cannula 04/26/22 12:45 36.2 C L 66 16 129/80 96 Nasal Cannula 04/26/22 12:35 66 12 129/77 95 Nasal Cannula 04/26/22 12:25 80 12 148/82 H 98 Nebulizer 04/26/22 12:15 80 18 128/81 99 Oxymask 04/26/22 12:20 67 14 99 Oxymask 04/26/22 12:08 36 C L 80 18 157/92 H 98 Oxymask 04/26/22 09:20 36.9 C 54 L 18 126/74 96 Room Air O2 Flow Rate 04/26/22 13:30 2 04/26/22 14:00 2 04/26/22 13:15 2 04/26/22 13:00 2 04/26/22 12:45 2 04/26/22 12:35 2 04/26/22 12:25 04/26/22 12:15 11 04/26/22 12:20 11 04/26/22 12:08 11 04/26/22 09:20 Pain Intensity Back: Pain Intensity: 3 Transfer of Care Handoff Completed per policy Notes Mental Status: alert / awake / arousable and participated in evaluation Patient Amnestic to Procedure: Yes Nausea / Vomiting: adequately controlled Pain: adequately controlled Airway Patency, RR, SpO2: stable & adequate BP & HR: stable & adequate Hydration State: stable & adequate Anesthetic Complications: no major complications apparent and Pt Satisfied with anesthetic care
[2022-04-26] MEDS: ASPIRIN 81 MG ECTAB PO SCH (16:15)
[2022-04-26] MEDS: oxyCODONE HCL IR 5 MG TAB (IMMEDIATE RELEASE) PO PRN (16:19)
[2022-04-26] MEDS: CLINDAMYCIN 600 MG in DEXTROSE 5% 50 ML IV SCH (18:31)
[2022-04-26] MEDS: traMADol HCL 50 MG TABLET PO PRN (19:45)
[2022-04-26] MEDS: DOCUSATE SODIUM/SENNA 50/8.6MG TAB PO SCH (20:45)
[2022-04-27] MEDS: ACETAMINOPHEN 500 MG TAB PO PRN (00:43)
[2022-04-27] MEDS: CLINDAMYCIN 600 MG in DEXTROSE 5% 50 ML IV SCH (01:15)
[2022-04-27] MEDS: traMADol HCL 50 MG TABLET PO PRN ×4 (04:07→20:39)
[2022-04-27] MEDS: POLYETHYLENE (MIRALAX) 17 GM PACK PO SCH ×4 (05:46→23:11)
[2022-04-27] MEDS: oxyCODONE HCL IR 5 MG TAB (IMMEDIATE RELEASE) PO PRN (07:32)
[2022-04-27] MEDS: dexAMETHasone 6 MG in SYRINGE 0 ML IV SCH (07:33)
[2022-04-27] MEDS: METOPROLOL SUCC 50MG EXT REL TAB PO SCH (07:34)
[2022-04-27 07:45] LABS: Basophils # (auto) 0.01 K/uL (0-0.2); Basophils % (auto) 0.1 %; Hematocrit (blood only) 37.3 % (34.1-44.9); Immature Granulocytes # (auto) 0.08 K/uL (0.00-0.02); Immature Granulocytes % (auto) 0.5 %; Lymphocytes # (auto) 1.24 K/uL (1.2-3.4); Lymphocytes % (auto) 7.8 %; Mean Corpuscular Hemoglobin 29.9 pg (25.0-34.0); Mean Corpuscular Hgb Conc 32.2 g/dL (32.0-36.0); Mean Platelet Volume 10.8 fL (9.4-12.3); Monocytes # (auto) 0.74 K/uL (0.24-0.82); Monocytes % (auto) 4.6 %; Platelet Count 216 K/uL (130-400); RDW Coefficient of Variation 13.7 % (11.5-14.5); RDW Standard Deviation 46.8 fL (36.4-46.3); Red Blood Count 4.01 M/uL (3.93-5.22); White Blood Count 15.97 K/ul (4.8-10.8)
[2022-04-27 08:06] LABS: BUN Creatinine Ratio 16.2 (10-20); Creatinine Clr Calc Pharmacy 73.4 ml/min; Est GFR (African American) 102.7 ml/min; Est GFR (Non-African American) 88.6 ml/min; Potassium 4.4 mmol/L (3.5-5.1)
[2022-04-27] MEDS ORDERED: SODIUM CHLORIDE 0.9% 1000ML 1,000 ML IV SCH (09:15)
--- NOTE | 2022-04-27 10:43 | Hospitalist Progress Note ---
Date of Service April 27, 2022 Assessment & Plan (1) Neurogenic claudication due to lumbar spinal stenosis: Plan: Stable overall Hemoglobin 12 Pain control, DVT prophylaxis per Dr. Morris (2) Vertigo: Plan: - Hx of such, none currently (3) Hypertension: Plan: Blood pressure on the lower side Improved with some IV fluids Continue metoprolol with holding parameters (4) Esophageal reflux: Plan: stable DVT ppx: - teds, scds CODE: Full code Thank you for involving us in the care of Mrs. Cruz. If you have any questions or concerns please do not hesitate to call. At this time medicine will follow along. Admission and Anticipated Discharge Date Admission Date: April 26, 2022 Subjective Follow-up status post back surgery, etc. Seen resting in bed, comfortable, not in distress States she has mild back pain, but tolerable No chest pain, shortness of breath, palpitations, dizziness Ambulating in the hallways with no problems No other symptoms Review of Systems Review of Systems: all noted and negative except for above Physical Exam Physical Exam: General- oriented x 3, not in distress, speaks in sentences with no effort or accessory muscle use Eyes- anicteric Neck- no JVD Lungs- clear breath sounds bilaterally, no crackles or wheezing Heart- normal rate, regular rhythm; no murmurs Abdomen- normal bowel sounds, nondistended, soft, nontender Extremities- no pretibial edema, no calf tenderness Neuro- alert, oriented x 3; no gross focal neurologic deficits Skin- warm & dry Results & Data Results & Data ([facility]) Vital Signs (Past 12 Hours) Vital Signs Temp Pulse Resp BP BP Pulse Ox O2 Del Method 04/27/22 07:51 36.6 C 58 L 16 99/62 L 94 Room Air 04/27/22 03:04 36.5 C 74 18 101/61 98 04/26/22 22:59 36.6 C 74 16 120/74 94
--- NOTE | 2022-04-27 11:06 | Orthopedic Progress Note ---
Date of Service April 27, 2022 Assessment & Plan (1) Neurogenic claudication due to lumbar spinal stenosis: Plan: Madelyn is postoperative day 1 status post TLIF L5-S1. Continue with pain control. She will start physical therapy today. DVT prophylaxis is in the form of teds and SCDs. Maintain YESSY drain. Anticipate discharge home within next 24 to 48 hours. Admission and Anticipated Discharge Date Admission Date: April 26, 2022 Subjective Madelyn is postoperative day 1 status post TLIF L5-S1. She is doing well. She had an uneventful evening. Right lower extremity sensation is improving. YESSY drain output last shift was 60 cc. H&H are 12.0 and 37.3 respectively this morning. Overall doing well. Review of Systems Review of Systems: All systems reviewed & are unremarkable except as noted in HPI & below Physical Exam Physical Exam: She is alert and oriented x3 No acute distress Lumbar dressing is clean dry and intact with functioning YESSY drain Strength is intact bilateral lower extremity Calf soft nontender bilaterally Results & Data ([facility]) Vital Signs (Past 12 Hours) Vital Signs Temp Pulse Resp BP BP Pulse Ox O2 Del Method 04/27/22 07:51 36.6 C 58 L 16 99/62 L 94 Room Air 04/27/22 03:04 36.5 C 74 18 101/61 98
[2022-04-27] MEDS: DOCUSATE SODIUM/SENNA 50/8.6MG TAB PO SCH (20:40)
[2022-04-28] MEDS: POLYETHYLENE (MIRALAX) 17 GM PACK PO SCH (05:36)
[2022-04-28] MEDS: ACETAMINOPHEN 500 MG TAB PO PRN (05:36)
[2022-04-28] MEDS: METOPROLOL SUCC 50MG EXT REL TAB PO SCH (07:39)
[2022-04-28] MEDS: dexAMETHasone 6 MG in SYRINGE 0 ML IV SCH (08:48)
--- NOTE | 2022-04-28 09:52 | Discharge Summary ---
Date of Service April 28, 2022 Admission HPI Per Admitting Provider This is a 71-year-old female well-known to me the presents with steady chronic persistent right sided leg pain. After failing extensive course of nonoperative care she is here for surgical invention. Principal Diagnosis Lumbar spinal stenosis with radiculopathy Discharge Data Allergies Allergy/AdvReac Type Severity Reaction Status Date / Time Quinolones Allergy Intermediate LEVAQUIN - Verified 04/26/22 09:06 joint pain amoxicillin AdvReac Intermediate SEVERE N/V Verified 04/26/22 09:06 clavulanic acid AdvReac Intermediate SEVERE N/V Verified 04/26/22 09:06 Consultations 04/26/22 13:48 Consult Hospitalist Routine Procedures Performed Operation Date: 04/26/22 10:05 Actual Procedures p L5-S1 Decompression and Fusion, Spinal Cord Monitoring, Interbody Placement L5-S1 - Kei Morris DO Ordered Studies 04/26/22 10:05 FL lumbar spine 2-3V Routine Hospital Course (1) Neurogenic claudication due to lumbar spinal stenosis: Patient with lumbar decompression fusion tolerated this well was taken to orthopedic for postoperative. Postop day 1 she was up and ambulating progressed to postop day #2. Excellent strength testing. YESSY drain decreasing appropriate. Pain well controlled. Separately discharged home. Discharge orders instructions from the chart for further review. Total Time Total Time Spent Total Time Spent (In Minutes): 20 minutes Discharge Plan Discharge Items Patient Disposition: Home - Self-Care Reason For Visit: Disc Disorders with radiculopathy, Lumbar Region Discharge Diagnosis: Lumbar spinal stenosis with radiculopathy Activity: As commented below Non-emergency contact: Primary Care Provider Call non-emergency contact if: you have any medication questions Follow-up/Referrals: Karishma Tobin M.D. [Primary Care Provider] - Diet: Regular Addtl Attending Provider Instructions: ACTIVITY RECOMMENDATIONS: SELF CARE INSTRUCTIONS AFTER THORACIC/LUMBAR FUSIONS 1. You may walk to your tolerance. It is good exercise for your legs and back. Expect some back and intermittent leg aches and pains. 2. You may perform "counter-top" level activities (make a sandwich, john with a project, etc.). 3. No bending or lifting of more than 10 pounds or back twisting of any nature (roll like a log when turning in bed). 4. You may ride in a car for 20-30 minutes at a time. No driving until after your first visit with your doctor. 5. Frequent changes of position and restricting sitting to 30 minutes at a time will help limit the amount of back spasms and stiffness you may experience. 6. You may discontinue the use of ambulatory aids (cane, crutches, etc.) once your strength and confidence allow. 7. You may laboratory animal care veterinarian the shower and let water strike your incision when you arrive home at least once daily. Do not take a tub bath, sit in a hot tub or go into a swimming pool until after your first recheck in the office. SPECIAL CARE INSTRUCTIONS: VERY IMPORTANT TO READ AND REVIEW A. Your surgical incision has been closed with a cosmetic suture under the skin that will dissolve in about 6 weeks. In 14 days, you can use a pair of clean scissors and cut the suture that is left outside of the skin at the ends of your incision. 1. The small skin tapes can be removed 7 days after surgery if they have not fallen off by that point. 2. You may keep the wound open to air as much as possible to promote healing after post-op day number 5 unless told otherwise by your doctor. 3. If you think the wound looks like it is becoming infected (redness or worsening drainage) and/or you are experiencing fever, chill or worsening back pain and muscle spasms, contact the office so that we may evaluate you as soon as possible. B. Complications are uncommon, but please contact us if you have any signs or symptoms of: 1. wound infection (fever higher than 102.5 degrees F, redness, separation of wound, drainage, or increasing pain from the incision) 2. blood clots in legs (pain, swelling, redness and warmth in legs) 3. urinary tract infection (fever higher than 102.5 degrees F, burning upon urination or increased frequency of urination) 4. nerve problems (inability to walk on your toes or heels, numbness, loss of bowel or bladder control) 5. any other symptoms that concern you C. Please call the office at if you have any concerns or questions about your operation or recovery. D. No smoking! Smoking drastically decreases the chance of a solid fusion. E. Do not take any anti-inflammatory medications (Indocin, Advil, Motrin, Aspirin, Naprosyn, etc.) as these may inhibit the chance of a solid fusion. Tylenol is okay to take for pain. MANAGING PAIN AFTER SPINAL SURGERY 1. Narcotic medication is intended for short-term use and will be provided for surgical pain. Surgical pain usually lasts for a period of 4-6 weeks. Narcotic medication includes Percocet, Vicodin, Darvocet, Tylenol #3 or Lortab. 2. Longer-term pain is more appropriately treated with non-narcotic medication such as Tylenol ES. 3. Muscle spasm is not appropriately treated with narcotics. Muscle relaxers such as Soma, Flexeril or Skelaxin can be used along with Tylenol ES. 4. Remember that we all live with some "aches and pains". This is not unusual or uncommon after an injury or as we get older. a. Back pain is expected and may include muscle spasms for 4 to 6 weeks after surgery. The pain should gradually improve. If the pain worsens for no apparent reason, please contact the office. b. Intermittent leg pain may also be experienced and should not be concerned about unless it worsens for no apparent reason. If so, please contact the office. 5. We will provide appropriate medication within the normal guidelines of their prescribed use. We will also be very cautious and aware of potential abuse and extended duration of patients' medication needs. a. Pain medications are for your comfort and to assist with sleep and rest so that the tissue can heal. They are not provided in order to return to normal activity and should not be used through the day. To do so or worsening pain at night can result from ongoing tissue damage and development of tolerance to the prescribed medicine. 6. Please allow 2-3 days to process refills. Prescriptions will not be mailed but must be picked up at the office. FOLLOW UP VISIT: Keep your scheduled follow-up appointment. Any questions, please call the office at . Pending Studies at Discharge: No Stand-Alone Forms: [employer], Smoking Cessation Medications and ID Order Prescriptions: New oxycodone 5 mg tablet 5 mg PO Q6H PRN (Reason: pain, severe) Qty: 30 0RF tramadol 50 mg tablet 50 mg PO Q6H PRN (Reason: pain, moderate) Qty: 30 0RF Continued metoprolol succinate 50 mg tablet extended release 24 hr 50 mg PO QAM aspirin [Alicia Low Dose Aspirin] 81 mg Tablet,Delayed Release (Dr/Ec) 81 mg PO Q2D Discharge Orders: Discharge Order (Routine); Ordered 04/28/22 Ordered By: Kei Morris Admission Data Admit Date/Time: 04/26/22 11:50 Attending Provider: Kei Morris Admit Provider: Kei Morris Primary Care Provider: Karishma Tobin Other Providers: Jud Traore ; Castillo Gonzalez
[2022-04-28] MEDS: traMADol HCL 50 MG TABLET PO PRN (13:29)
--- NOTE | 2022-04-28 16:07 | Hospitalist Progress Note ---
Date of Service April 28, 2022 Assessment & Plan (1) Neurogenic claudication due to lumbar spinal stenosis: Plan: Stable overall Hemoglobin 12 Pain control, DVT prophylaxis per Dr. Morris (2) Vertigo: Plan: - Hx of such, none currently (3) Hypertension: Plan: Blood pressure on the lower side Improved with some IV fluids Continue metoprolol with holding parameters. Recommended patient to discuss with her primary care doctor regarding her antihypertensive. Recommended home blood pressure monitoring. (4) Esophageal reflux: Plan: stable DVT ppx: - teds, scds CODE: Full code Admission and Anticipated Discharge Date Admission Date: April 26, 2022 Subjective Patient seen and examined at bedside. She is sitting up the side of the bed; not in any distress. She is looking forward to getting back home. Review of Systems Review of Systems: All systems reviewed & are unremarkable except as noted in Subjective Physical Exam Physical Exam: General- oriented x 3, not in distress, speaks in sentences with no effort or accessory muscle use Eyes- anicteric Neck- no JVD Lungs- clear breath sounds bilaterally, no crackles or wheezing Heart- normal rate, regular rhythm; no murmurs Abdomen- normal bowel sounds, nondistended, soft, nontender Extremities- no pretibial edema, no calf tenderness Neuro- alert, oriented x 3; no gross focal neurologic deficits Skin- warm & dry Results & Data Results & Data ([facility]) Vital Signs (Past 12 Hours) Vital Signs Temp Pulse Pulse Resp BP BP Pulse Ox 04/28/22 14:50 36.4 C L 68 18 112/66 94 04/28/22 12:51 36.9 C 58 L 56 L 18 124/73 101/61 95 04/28/22 07:23 36.9 C 58 L 18 124/73 95 O2 Del Method 04/28/22 14:50 Room Air 04/28/22 12:51 04/28/22 07:23 Room Air Laboratory Results Laboratory Results WBC 15.97 K/ul (4.8-10.8) H 04/27/22 07:04 RBC 4.01 M/uL (3.93-5.22) 04/27/22 07:04 Hgb 12.0 g/dl (12.0-16.0) 04/27/22 07:04 Hct 37.3 % (34.1-44.9) 04/27/22 07:04 MCV 93.0 fL (80.0-100.0) 04/27/22 07:04 MCH 29.9 pg (25.0-34.0) 04/27/22 07:04 MCHC 32.2 g/dL (32.0-36.0) 04/27/22 07:04 RDW Std Deviation 46.8 fL (36.4-46.3) H 04/27/22 07:04 RDW Coeff of Quintin 13.7 % (11.5-14.5) 04/27/22 07:04 Plt Count 216 K/uL (130-400) 04/27/22 07:04 MPV 10.8 fL (9.4-12.3) 04/27/22 07:04 Immature Gran % (Auto) 0.5 % 04/27/22 07:04 Neut % (Auto) 87.0 % 04/27/22 07:04 Lymph % (Auto) 7.8 % 04/27/22 07:04 Stafford % (Auto) 4.6 % 04/27/22 07:04 Eos % (Auto) 0.0 % 04/27/22 07:04 Baso % (Auto) 0.1 % 04/27/22 07:04 Neut # (Auto) 13.90 K/uL (1.4-6.5) H 04/27/22 07:04 Lymph # (Auto) 1.24 K/uL (1.2-3.4) 04/27/22 07:04 Stafford # (Auto) 0.74 K/uL (0.24-0.82) 04/27/22 07:04 Eos # (Auto) 0.00 K/uL (0-0.50) 04/27/22 07:04 Baso # (Auto) 0.01 K/uL (0-0.2) 04/27/22 07:04 Immature Gran # (Auto) 0.08 K/uL (0.00-0.02) H 04/27/22 07:04 Sodium 137 mmol/L (136-145) 04/27/22 07:04 Potassium 4.4 mmol/L (3.5-5.1) 04/27/22 07:04 Chloride 104 mmol/L (98-107) 04/27/22 07:04 Carbon Dioxide 29 mmol/L (21-32) 04/27/22 07:04 Anion Gap 4 (3-11) 04/27/22 07:04 BUN 11 mg/dl (6-23) 04/27/22 07:04 Creatinine 0.68 mg/dl (0.6-1.2) 04/27/22 07:04 Est Cr Clr Drug Dosing 73.4 ml/min 04/27/22 07:04 Est GFR ( Amer) 102.7 ml/min 04/27/22 07:04 Est GFR (Non-Af Amer) 88.6 ml/min 04/27/22 07:04 BUN/Creatinine Ratio 16.2 (10-20) 04/27/22 07:04 Glucose 113 mg/dl (70-99(Fasting)) H 04/27/22 07:04 POC Glucose 153 mg/dl (70-99) H 04/27/22 11:46 Calcium 9.0 mg/dl (8.5-10.1) 04/27/22 07:04 Hepatitis C Ab (EIA) NON-REACTIVE (NON-REACTIVE) 04/27/22 07:04 Hep C Ab Signal/Cutoff 0.05 (<1.00) 04/27/22 07:04 SARS-CoV-2, RNA, NAAT NEGATIVE (NEGATIVE) 04/26/22 08:40 Impressions Lumbar Spine X-Ray 04/26/22 10:05 FL lumbar spine 2-3V CLINICAL HISTORY: L5-S1 decompression and fusion COMPARISON STUDY: None. FLUOROSCOPY TIME: 24 seconds. FINDINGS: 2 fluoroscopic spot images of the lumbar spine demonstrate posterior decompression and fusion at L5-S1 with pedicle screws and rods. The hardware appears intact. A disc spacer is in place. IMPRESSION: Fluoroscopic assistance provided for L5-S1 posterior decompression and fusion. ACT 112: Negative or not required by law. Electronically signed by: Wade Javier M.D. 04/26/2022 12:59 PM
[2022-04-28] MEDS: ASPIRIN 81 MG ECTAB PO SCH (16:20)
== END 2022-04-28 17:48 | disposition home or self-care (01) | DRG 455 ==
LOC: ASU 08:21 → 3W 11:50